=== PATIENT | male | born 1980 | race Caucasian/White ===

== ENCOUNTER 2024-06-07 13:27 | Emergency (ER) | payer OTHER ==
[~2024-06-07] VITALS: Ht 152.4 cm; Wt 97.5 kg
[2024-06-07 13:51] VITALS: BP_SYST 160; PULSE 115; RESP 20; TEMP 98.3; O2SAT 98
[2024-06-07 14:32] LABS: BASOPHILS # (AUTO) 0.1 K/uL (0.0-0.2); BASOPHILS % (AUTO) 0.8 % (0.0-2.0); EOSINOPHILS # (AUTO) 0.2 K/uL (0.0-0.4); HEMATOCRIT 41.7 % (36-54); HEMOGLOBIN 13.9 g/dL (14.0-18.0); LYMPHOCYTES # (AUTO) 3.2 K/uL (1.0-5.5); LYMPHOCYTES % (AUTO) 19.3 % (20.5-51.5); MEAN CORPUSCULAR HEMOGLOBIN 27 pg (27-31); MEAN CORPUSCULAR HGB CONC 33 % (32-36); MEAN CORPUSCULAR VOLUME 80 fL (79.0-98.0); MONOCYTES # (AUTO) 0.9 K/uL (0.0-1.0); MONOCYTES % (AUTO) 5.3 % (1.7-9.3); NEUTROPHILS # (AUTO) 12.1 K/uL (1.8-7.7); NEUTROPHILS % (AUTO) 73.6 % (40.0-70.0); RED BLOOD CELL COUNT(AUTO) 5.21 MIL/uL (4.2-6.2); RED CELL DISTRIBUTION WIDTH 16.1 % (9.0-15.0); WHITE BLOOD COUNT (AUTO) 16.4 K/uL (4.8-10.8)
[2024-06-07 14:39] LABS: PLATELET COUNT (AUTO) 230 K/uL (130-430)
[2024-06-07 14:43] LABS: ALBUMIN 3.4 g/dL (3.4-4.8); CREATININE 0.7 mg/dL (0.55-1.30); POTASSIUM 3.9 mmol/L (3.5-5.1); TOTAL BILIRUBIN 0.4 mg/dL (0.0-1.0); TOTAL PROTEIN, SERUM 8.2 g/dL (6.4-8.3)
[2024-06-07 15:13] LABS: BILIRUBIN,DIRECT 0.1 mg/dL (0.0-0.3)
[2024-06-07] MEDS ORDERED: CLIN300C3 PO (16:24)
[2024-06-07 16:39] VITALS: TEMP 98.5
== END 2024-06-07 16:28 | disposition home or self-care (01) ==
LOC: SED 13:27
DX: L03.115 Cellulitis of right lower limb (principal)
CPT/HCPCS: 36415; 73590; 80048; 80076; 83605; 85025; 93971; 99284